=== PATIENT | female | born 1945 | race Caucasian/White ===

== ENCOUNTER 2017-10-04 16:56 | Emergency (ER) | payer MEDICARE ==
[2017-10-04] MEDS ORDERED: cloNIDine HCl 0.1 MG TAB ONE ×2 (17:44→18:42)
--- NOTE | 2017-10-04 18:34 | ER ---
Nurse's Notes [facility] Name: Malka Samuels Age: 72 yrs Sex: Female : 1945 Arrival Date: 10/04/2017 Time: 16:59 Bed 19 Private MD: Andrew Paredes E Diagnosis: Hypertensive heart disease-Poorly controlled Presentation: 10/04 17:02 Presenting complaint: Patient states: my BP is really high, 207/93; reports pounding hj headache, reports SOB; denies chest pain;. Transition of care: patient was not received from another setting of care. Onset of symptoms was October 04, 2017. Initial Sepsis Screen: Does the patient meet any 2 criteria? No. Patient's initial sepsis screen is negative. Does the patient have a suspected source of infection? No. Patient's initial sepsis screen is negative. Care prior to arrival: None. 17:02 Method Of Arrival: Ambulatory 17:02 Acuity: NAYELY 3 hj Triage Assessment: 17:05 General: Appears in no apparent distress. uncomfortable, Behavior is calm, cooperative, hj appropriate for age. Pain: Complains of pain in head. Historical: - Allergies: 17:04 PENICILLINS; hj - Home Meds: 17:04 Simvastatin Oral [Active]; Aspirin Oral [Active]; lisinopril-hydrochlorothiazide hj 10-12.5 mg oral tab 1 tab once daily [Active]; - PMHx: 17:04 Hypertension; Hyperlipidemia; hj - PSHx: 17:04 Hysterectomy; hj - Immunization history:: Adult Immunizations up to date. - Social history:: Smoking status: Patient/guardian denies using tobacco. Screenin:59 Abuse screen: Denies threats or abuse. Nutritional screening: No deficits noted. em Tuberculosis screening: No symptoms or risk factors identified. Fall Risk None identified. Assessment: 17:14 General: Appears in no apparent distress. uncomfortable, Behavior is calm, cooperative, em Reports having high blood pressure that started Saturday evening and tried to make a appointment with her but was unable to get one. Pain: Denies pain. Neuro: Level of Consciousness is awake, alert, obeys commands, Oriented to person, place, time, situation, Denies weakness dizziness, headache. Cardiovascular: Capillary refill < 3 seconds Patient's skin is warm and dry. Respiratory: Reports shortness of breath at rest cough that is non-productive, Airway is patent Respiratory effort is even, unlabored, Respiratory pattern is regular, symmetrical, Breath sounds are clear bilaterally. GI: Abdomen is flat, Patient currently denies nausea, vomiting. : Urine is clear. EENT: No signs and/or symptoms were reported regarding the EENT system. Derm: Skin is intact, Skin is pink, warm \T\ dry. Musculoskeletal: Range of motion: intact in all extremities. 18:45 Reassessment: Patient appears in no apparent distress at this time. pt medicated with em second clonidine 0.1 mg, will be discharged afterwards. 19:19 Reassessment: Patient appears in no apparent distress at this time. Patient and/or jd3 family updated on plan of care and expected duration. Pain level reassessed. Patient is alert, oriented x 3, equal unlabored respirations, skin warm/dry/pink. pt reporting understanding of discharge instructions, even and steady gait upon discharge Patient denies pain at this time. Vital Signs: 17:05 BP 200 / 79; Pulse 106; Resp 18; Temp 99.5(O); Pulse Ox 94% on R/A; Weight 44.72 kg; Height 5 ft. 1 in. (154.94 cm); 17:38 BP 182 / 69; Pulse 96; Resp 20; Pulse Ox 92% on R/A; Pain 0/10; em 18:38 BP 171 / 63; Pulse 94; Resp 18; Pulse Ox 94% on R/A; Pain 0/10; em 17:05 Body Mass Index 18.63 (44.72 kg, 154.94 cm) ED Course: 16:59 Patient arrived in ED. mr 16:59 Andrew Paredes MD is Private Physician. mr 17:03 Triage completed. hj 17:06 Arm band placed on left wrist. hj 17:10 Blaise Chow LVN is Primary Nurse. em 17:16 Olvin Lake MD is Attending Physician. kdr 17:59 No provider procedures requiring assistance completed. em 18:00 Patient has correct armband on for positive identification. Placed in gown. Bed in low em position. Call light in reach. Side rails up X2. 18:33 Andrew Paredes MD is Referral Physician. kdr 19:18 Primary Nurse role handed off by Blaise Chow LVN rg2 19:19 Nathaniel Grider, RN is Primary Nurse. jd3 19:20 Patient did not have IV access during this emergency room visit. jd3 Administered Medications: 17:49 Drug: cloNIDine 0.1 mg Route: PO; em 18:44 Follow up: Response: No adverse reaction em 18:44 Drug: cloNIDine 0.1 mg Route: PO; em 19:21 Follow up: Response: No adverse reaction jd3 Outcome: 18:33 Discharge ordered by . kdr 19:20 Discharged to home ambulatory, with family. jd3 19:20 Condition: stable 19:20 Discharge instructions given to patient, family, Instructed on discharge instructions, follow up and referral plans. medication usage, Demonstrated understanding of instructions, follow-up care, medications, Prescriptions given X 1. 19:21 Patient left the ED. jd3 Signatures: Rhonda Carter rg2 Olvin Lake MD MD kdr Rivera, Maria ChowBlaise, KHANH EVP CHIEF EXPLORATION OFFICER em Rusty Driscoll RN RN Nathaniel Grider RN RN jd3
--- NOTE | 2017-10-04 18:34 | EDPHYS ---
Physician Documentation [facility] Name: Malka Samuels Age: 72 yrs Sex: Female : 1945 Arrival Date: 10/04/2017 Time: 16:59 Bed 19 Private MD: Andrew Paredes E ED Physician Olvin Lake HPI: 10/04 18:35 This 72 yrs old Female presents to ER via Ambulatory with complaints of High kdr Blood Pressure. 18:35 The patient has elevated blood pressure and discovered this at home, with a home kdr device. Onset: The symptoms/episode began/occurred gradually, 3 day(s) ago. Modifying factors: The symptoms are aggravated by Nothing, The symptoms are alleviated by Nothing. Associated signs and symptoms: Pertinent positives: headache, Very mild, Pertinent negatives: chest pain, dizziness, dyspnea, lightheadedness, nausea, visual changes, vomiting, weakness. Severity of symptoms: At its worst the blood pressure was moderate, just prior to arrival, in the emergency department the blood pressure is unchanged. The patient has not experienced similar symptoms in the past. The patient has not recently seen a physician. Historical: - Allergies: 17:04 PENICILLINS; hj - Home Meds: 17:04 Simvastatin Oral [Active]; Aspirin Oral [Active]; lisinopril-hydrochlorothiazide hj 10-12.5 mg oral tab 1 tab once daily [Active]; - PMHx: 17:04 Hypertension; Hyperlipidemia; hj - PSHx: 17:04 Hysterectomy; hj - Immunization history:: Adult Immunizations up to date. - Social history:: Smoking status: Patient/guardian denies using tobacco. ROS: 18:35 Constitutional: Negative for fever, chills, and weight loss, Eyes: Negative for injury, kdr pain, redness, and discharge, ENT: Negative for injury, pain, and discharge, Neck: Negative for injury, pain, and swelling, Cardiovascular: Negative for chest pain, palpitations, and edema, Respiratory: Negative for shortness of breath, cough, wheezing, and pleuritic chest pain, Abdomen/GI: Negative for abdominal pain, nausea, vomiting, diarrhea, and constipation, Back: Negative for injury and pain, : Negative for injury, bleeding, discharge, and swelling, MS/Extremity: Negative for injury and deformity, Skin: Negative for injury, rash, and discoloration, Psych: Negative for depression, anxiety, suicide ideation, homicidal ideation, and hallucinations, Allergy/Immunology: Negative for hives, rash, and allergies, Endocrine: Negative for neck swelling, polydipsia, polyuria, polyphagia, and marked weight changes, Hematologic/Lymphatic: Negative for swollen nodes, abnormal bleeding, and unusual bruising. 18:35 Neuro: Positive for headache, Very mild bi-temporal throbbing, Negative for altered mental status, dizziness, gait disturbance, hearing loss, loss of consciousness, numbness, seizure activity, speech changes, syncope, near syncope, tingling, tinnitus, tremor, visual changes, weakness. Exam: 18:35 Constitutional: This is a well developed, well nourished patient who is awake, alert, kdr and in no acute distress. Head/Face: Normocephalic, atraumatic. Eyes: Pupils equal round and reactive to light, extra-ocular motions intact. Lids and lashes normal. Conjunctiva and sclera are non-icteric and not injected. Cornea within normal limits. Periorbital areas with no swelling, redness, or edema. ENT: Nares patent. No nasal discharge, no septal abnormalities noted. Tympanic membranes are normal and external auditory canals are clear. Oropharynx with no redness, swelling, or masses, exudates, or evidence of obstruction, uvula midline. Mucous membranes moist. Neck: Trachea midline, no thyromegaly or masses palpated, and no cervical lymphadenopathy. Supple, full range of motion without nuchal rigidity, or vertebral point tenderness. No Meningismus. Chest/axilla: Normal chest wall appearance and motion. Nontender with no deformity. No lesions are appreciated. Cardiovascular: Regular rate and rhythm with a normal S1 and S2. No gallops, murmurs, or rubs. Normal PMI, no JVD. No pulse deficits. Respiratory: Lungs have equal breath sounds bilaterally, clear to auscultation and percussion. No rales, rhonchi or wheezes noted. No increased work of breathing, no retractions or nasal flaring. Abdomen/GI: Soft, non-tender, with normal bowel sounds. No distension or tympany. No guarding or rebound. No evidence of tenderness throughout. Back: No spinal tenderness. No costovertebral tenderness. Full range of motion. Skin: Warm, dry with normal turgor. Normal color with no rashes, no lesions, and no evidence of cellulitis. MS/ Extremity: Pulses equal, no cyanosis. Neurovascular intact. Full, normal range of motion. Neuro: Awake and alert, GCS 15, oriented to person, place, time, and situation. Cranial nerves II-XII grossly intact. Motor strength 5/5 in all extremities. Sensory grossly intact. Cerebellar exam normal. Normal gait. Psych: Awake, alert, with orientation to person, place and time. Behavior, mood, and affect are within normal limits. Vital Signs: 17:05 BP 200 / 79; Pulse 106; Resp 18; Temp 99.5(O); Pulse Ox 94% on R/A; Weight 44.72 kg; hj Height 5 ft. 1 in. (154.94 cm); 17:38 BP 182 / 69; Pulse 96; Resp 20; Pulse Ox 92% on R/A; Pain 0/10; em 18:38 BP 171 / 63; Pulse 94; Resp 18; Pulse Ox 94% on R/A; Pain 0/10; em 17:05 Body Mass Index 18.63 (44.72 kg, 154.94 cm) MDM: 18:33 Patient medically screened. kdr 18:35 Data reviewed: vital signs, nurses notes. Counseling: I had a detailed discussion with kdr the patient and/or guardian regarding: the historical points, exam findings, and any diagnostic results supporting the discharge/admit diagnosis, the presence of at least one elevated blood pressure reading (>120/80) during this emergency department visit. Administered Medications: 17:49 Drug: cloNIDine 0.1 mg Route: PO; em 18:44 Follow up: Response: No adverse reaction em 18:44 Drug: cloNIDine 0.1 mg Route: PO; em 19:21 Follow up: Response: No adverse reaction jd3 Disposition: 10/04/17 18:33 Discharged to Home. Impression: Hypertensive heart disease - Poorly controlled. - Condition is Stable. - Discharge Instructions: Hypertension, [id number]. - Prescriptions for Clonidine 0.1 mg Oral Tablet - take 1 tablet by ORAL route every 12 hours; 14 tablet. - Medication Reconciliation Form, Thank You Letter form. - Follow up: Andrew Paredes MD; When: 1 - 2 days; Reason: If symptoms return, Further diagnostic work-up, Recheck today's complaints, Continuance of care, Re-evaluation by your physician. - Problem is new. - Symptoms have improved. Signatures: Olvin Lake MD MD kdr Munoz, Edgar, KHANH PROGRAM MGR Rusty Hurt RN RN hj Nathaniel Grider RN RN jd3
== END 2017-10-04 19:21 | disposition home or self-care (01) ==
LOC: ER 16:56
DX: I11.9 Hypertensive heart disease without heart failure (principal); E78.5 Hyperlipidemia, unspecified; Z88.0 Allergy status to penicillin
CPT/HCPCS: 99283

== ENCOUNTER 2020-07-08 20:03 | Emergency (ER) | payer MEDICARE ==
--- OUTSIDE RECORDS SUMMARY | 2020-07-08 20:05 | XMS REPORT | Continuity of Care Document ---
:1945 Author Organization [facility] t Address [address] [place] [address] [address] [place] [address] Care Team Providers Name Role Phone Moustapha ERIC Attending Clinician Problems This patient has no known problems. Allergies, Adverse Reactions, Alerts This patient has no known allergies or adverse reactions. Medications This patient has no known medications. Procedures This patient has no known procedures. Encounters Start End Encounter Admission Attending Care Care Encounter Source Date/Time Date/Time Type Type Clinicians Facility Department ID 2019-08-05 2019-08-05 Office ABILIO Gerard [id number] 13:12:28 13:57:01 Visit Jesse VELOZ [id number] [facility] [id number] CENTER AT [id number] BRYN [address] [place] [address] Results This patient has no known results.
[2020-07-08] MEDS ORDERED: AMLODIPINE 10 MG TAB ONE (20:58)
[2020-07-08 21:16] LABS: Basophils % 0.6 % (0-1.3); Hematocrit 38.5 % (36.0-45.0); RBC Red Blood Cell Count 4.33 M/uL (3.86-4.86)
[2020-07-08 21:19] LABS: Protime INR 1.23
--- NOTE | 2020-07-08 21:24 | RAD REPORT ---
EXAM DESCRIPTION: RAD - Chest Single View - 07/08/2020 9:06 pm CLINICAL HISTORY: COUGH Chest pain. COMPARISON: No comparisons FINDINGS: Portable technique limits examination quality. The lungs are emphysematous but grossly clear. The heart is normal in size. No displaced fractures. IMPRESSION: No acute intrathoracic process suspected.
[2020-07-08 21:36] LABS: ALT/SGPT 25 U/L (12-78); AST/SGOT 18 U/L (15-37); Albumin 4.1 g/dL (3.4-5.0); Alkaline Phosphatase 91 U/L (45-117); BUN Blood Urea Nitrogen 7 mg/dL (7-18); Bicarbonate 32 mmol/L (21-32); Bilirubin Direct 0.2 mg/dL (0-0.2); Bilirubin Total 0.8 mg/dL (0.2-1.0); Glucose Level 118 mg/dL (74-106); Magnesium 1.9 mg/dL (1.8-2.4); NT PRO-BNP 190 pg/mL (<125); Protein, Total 7.6 g/dL (6.4-8.2); Sodium Level 135 mmol/L (136-145); Troponin (Emerg Dept Use Only) < 0.02 ng/mL (0.0-0.045)
--- NOTE | 2020-07-08 22:27 | EDPHYS ---
Physician Documentation [facility] Name: Malka Samuels Age: 74 yrs Sex: Female : 1945 Arrival Date: 07/08/2020 Time: 20:05 Bed 3 Private MD: Rakesh Christy HPI: 07/08 21:00 This 74 yrs old Female presents to ER via Ambulatory with complaints of High jennifer Blood Pressure. 21:00 The patient has elevated blood pressure and discovered this at a drugstore, at home. jennifer Onset: The symptoms/episode began/occurred 5 day(s) ago. Modifying factors: The symptoms are aggravated by activity, The symptoms are alleviated by remaining still. Associated signs and symptoms: The patient has no apparent associated signs or symptoms. The patient has not experienced similar symptoms in the past. Historical: - Allergies: 20:32 PENICILLINS; ll1 - PMHx: 20:32 Hyperlipidemia; Hypertension; ll1 - PSHx: 20:32 Hysterectomy; ll1 - Immunization history:: Flu vaccine is up to date. - Social history:: Smoking status: Patient denies any tobacco usage or history of. ROS: 21:01 Constitutional: Negative for fever, chills, and weight loss, Eyes: Negative for injury, jennifer pain, redness, and discharge, ENT: Negative for injury, pain, and discharge, Neck: Negative for injury, pain, and swelling, Cardiovascular: Negative for chest pain, palpitations, and edema, Respiratory: Negative for shortness of breath, cough, wheezing, and pleuritic chest pain, Abdomen/GI: Negative for abdominal pain, nausea, vomiting, diarrhea, and constipation, Back: Negative for injury and pain, : Negative for injury, bleeding, discharge, and swelling, MS/Extremity: Negative for injury and deformity, Skin: Negative for injury, rash, and discoloration, Psych: Negative for depression, anxiety, suicide ideation, homicidal ideation, and hallucinations, Allergy/Immunology: Negative for hives, rash, and allergies, Endocrine: Negative for neck swelling, polydipsia, polyuria, polyphagia, and marked weight changes, Hematologic/Lymphatic: Negative for swollen nodes, abnormal bleeding, and unusual bruising. 21:01 Neuro: Positive for dizziness. Exam: 21:01 Constitutional: This is a well developed, well nourished patient who is awake, alert, jennifer and in no acute distress. Head/Face: Normocephalic, atraumatic. Eyes: Pupils equal round and reactive to light, extra-ocular motions intact. Lids and lashes normal. Conjunctiva and sclera are non-icteric and not injected. Cornea within normal limits. Periorbital areas with no swelling, redness, or edema. ENT: Nares patent. No nasal discharge, no septal abnormalities noted. Tympanic membranes are normal and external auditory canals are clear. Oropharynx with no redness, swelling, or masses, exudates, or evidence of obstruction, uvula midline. Mucous membranes moist. Neck: Trachea midline, no thyromegaly or masses palpated, and no cervical lymphadenopathy. Supple, full range of motion without nuchal rigidity, or vertebral point tenderness. No Meningismus. Chest/axilla: Normal chest wall appearance and motion. Nontender with no deformity. No lesions are appreciated. Cardiovascular: Regular rate and rhythm with a normal S1 and S2. No gallops, murmurs, or rubs. Normal PMI, no JVD. No pulse deficits. Respiratory: Lungs have equal breath sounds bilaterally, clear to auscultation and percussion. No rales, rhonchi or wheezes noted. No increased work of breathing, no retractions or nasal flaring. Abdomen/GI: Soft, non-tender, with normal bowel sounds. No distension or tympany. No guarding or rebound. No evidence of tenderness throughout. Back: No spinal tenderness. No costovertebral tenderness. Full range of motion. Skin: Warm, dry with normal turgor. Normal color with no rashes, no lesions, and no evidence of cellulitis. MS/ Extremity: Pulses equal, no cyanosis. Neurovascular intact. Full, normal range of motion. Neuro: Awake and alert, GCS 15, oriented to person, place, time, and situation. Cranial nerves II-XII grossly intact. Motor strength 5/5 in all extremities. Sensory grossly intact. Cerebellar exam normal. Normal gait. Psych: Awake, alert, with orientation to person, place and time. Behavior, mood, and affect are within normal limits. 21:01 Musculoskeletal/extremity: DVT Exam: No signs of deep vein thrombosis. no pain, no swelling, no tenderness, negative Homans' sign noted on exam, no appreciated bluish discoloration, no erythema, no increased warmth. 21:04 ECG was reviewed by the Attending Physician. [facility] Vital Signs: 20:30 BP 223 / 74; Pulse 84; Resp 18; Temp 98.1; Pulse Ox 93% on R/A; Weight 40.37 kg; Height ll1 5 ft. 0 in. (152.40 cm); Pain 0/10; 22:18 BP 180 / 79; Pulse 81; Resp 20; Pulse Ox 95% ; ea 23:00 BP 180 / 73; Pulse 80; Resp 18; Pulse Ox 97% ; ea 20:30 Body Mass Index 17.38 (40.37 kg, 152.40 cm) ll1 MDM: 20:33 Patient medically screened. jennifer 21:02 Differential diagnosis: hypertensive crisis, Malignant HTN, CVA. Differential Diagnosis jennifer altered mental status, sepsis. Data reviewed: vital signs, nurses notes, lab test result(s), EKG, radiologic studies, plain films. Data interpreted: conveyor monitor: rate is 84 beats/min, rhythm is regular. Test interpretation: by ED physician or midlevel provider: ECG, plain radiologic studies. Counseling: I had a detailed discussion with the patient and/or guardian regarding: the historical points, exam findings, and any diagnostic results supporting the discharge/admit diagnosis, lab results, radiology results. 07/08 20:34 Order name: Basic Metabolic Panel [facility] 07/08 20:34 Order name: CBC with Diff; Complete Time: 21:[address] [facility] 07/08 20:34 Order name: LFT's; Complete Time: 21:[address] [facility] 07/08 20:34 Order name: Magnesium; Complete Time: 21:[address] [facility] 07/08 20:34 Order name: NT PRO-BNP; Complete Time: 21:[address] [facility] 07/08 20:34 Order name: PT-INR; Complete Time: 21:[address] [facility] 07/08 20:34 Order name: Troponin (emerg Dept Use Only); Complete Time: 21:[address] [facility] 07/08 20:34 Order name: XRAY Chest (1 view) [facility] 07/08 20:34 Order name: EKG; Complete Time: 20:[address] [facility] 07/08 20:34 Order name: Cardiac monitoring; Complete Time: 20:[address] [facility] 07/08 20:35 Order name: Basic Metabolic Panel; Complete Time: 21:54 [facility] 07/08 21:26 Order name: RAD; Complete Time: 21:28 [facility] 07/08 20:34 Order name: EKG - Nurse/Tech; Complete Time: 22:[address] [facility] 07/08 20:34 Order name: IV Saline Lock; Complete Time: 22:[address] [facility] 07/08 20:34 Order name: Labs collected and sent; Complete Time: 21:[address] [facility] 07/08 20:34 Order name: O2 Per Protocol; Complete Time: 22:[address] [facility] 07/08 20:34 Order name: O2 Sat Monitoring; Complete Time: 22:[address] [facility] 07/08 20:34 Order name: Urine Dipstick-Ancillary (obtain specimen) [facility] 07/08 21:55 Order name: Misc. Order: po juice; Complete Time: 22:[address] [facility] 07/08 21:58 Order name: Vital Signs; Complete Time: 22:[address] [facility] EC:04 Rate is 74 beats/min. Rhythm is regular. QRS Mcfarland is Normal. MD interval is normal. QRS jennifer interval is normal. QT interval is normal. No Q waves. T waves are Normal. No ST changes noted. Clinical impression: Normal ECG and No evidence of ischemia. Interpreted by me. Reviewed by me. Administered Medications: 21:10 Drug: Norvasc 10 mg Route: PO; ea 22:33 Follow up: Response: No adverse reaction; Blood pressure is lowered ea 22:45 Drug: Potassium Effervescent Tablet 50 mEq Route: PO; ea 23:09 Follow up: Response: No adverse reaction ea Disposition: 07/08/20 22:27 Discharged to Home. Impression: Essential (primary) hypertension, Hypokalemia. - Condition is Stable. - Discharge Instructions: Potassium Content of Foods, Hypertension, Hypertension, [id number], Hypokalemia. - Prescriptions for Norvasc 5 mg Oral Tablet - take 1 tablet by ORAL route once daily; 20 tablet. Lisinopril- Hydrochlorothiazide 20-12.5 mg Oral Tablet - take 1 tablet by ORAL route once daily; 20 tablet. Potassium Chloride 20 meq Oral Packet - take 1 packet by ORAL route once daily 1 packet in 6 (six) ounces of water or juice; Take after meal; 30 packet. - Medication Reconciliation Form, Thank You Letter, Antibiotic Education, Prescription Opioid Use form. - Follow up: Private Physician; When: 2 - 3 days; Reason: Recheck today's complaints, Continuance of care, Re-evaluation by your physician. Follow up: Freedom Carson; When: 2 - 3 days; Reason: Recheck today's complaints, Continuance of care, Re-evaluation by your physician. - Problem is new. - Symptoms have improved. Signatures: Dispatcher [employer] EDMS Rakesh Cartagena MD MD cha Antunez, Elena, RN RN ea Lewis, Lynsay, RN RN ll1 Corrections: (The following items were deleted from the chart) 23:08 22:27 07/08/2020 22:27 Discharged to Home. Impression: Essential (primary) ea hypertension; Hypokalemia. Condition is Stable. Discharge Instructions: Hypertension, Hypertension, [id number], Potassium Content of Foods, Hypokalemia. Prescriptions for Norvasc 5 mg Oral Tablet - take 1 tablet by ORAL route once daily; 20 tablet, Lisinopril-Hydrochlorothiazide 20-12.5 mg Oral Tablet - take 1 tablet by ORAL route once daily; 20 tablet, Potassium Chloride 20 meq Oral Packet - take 1 packet by ORAL route once daily 1 packet in 6 (six) ounces of water or juice; Take after meal; 30 packet. and Forms are Medication Reconciliation Form, Thank You Letter, Antibiotic Education, Prescription Opioid Use. Follow up: Private Physician; When: 2 - 3 days; Reason: Recheck today's complaints, Continuance of care, Re-evaluation by your physician. Follow up: Freedom Carson; When: 2 - 3 days; Reason: Recheck today's complaints, Continuance of care, Re-evaluation by your physician. Problem is new. Symptoms have improved. jennifer
--- NOTE | 2020-07-08 22:27 | ER ---
Nurse's Notes [facility] Name: Malka Samuels Age: 74 yrs Sex: Female : 1945 Arrival Date: 07/08/2020 Time: 20:05 Bed 3 Private MD: Diagnosis: Essential (primary) hypertension;Hypokalemia Presentation: 07/08 20:30 Chief complaint: Patient states: BP has been elevated since Saturday. BP 213/88 today ll1 at home. Coronavirus screen: Client denies travel out of the [place] in the last 14 days. At this time, the client does not indicate any symptoms associated with coronavirus-19. Ebola Screen: Patient denies travel to an Ebola-affected area in the 21 days before illness onset. Initial Sepsis Screen: Does the patient meet any 2 criteria? No. Patient's initial sepsis screen is negative. Does the patient have a suspected source of infection? No. Patient's initial sepsis screen is negative. Risk Assessment: Do you want to hurt yourself or someone else? Patient reports no desire to harm self or others. Onset of symptoms was July 06, 2020. 20:30 Method Of Arrival: Ambulatory ll1 20:30 Acuity: NAYELY 2 ll1 Historical: - Allergies: 20:32 PENICILLINS; ll1 - PMHx: 20:32 Hyperlipidemia; Hypertension; ll1 - PSHx: 20:32 Hysterectomy; ll1 - Immunization history:: Flu vaccine is up to date. - Social history:: Smoking status: Patient denies any tobacco usage or history of. Screenin:38 Abuse screen: Denies threats or abuse. Nutritional screening: No deficits noted. ea Tuberculosis screening: No symptoms or risk factors identified. Fall Risk None identified. Assessment: 21:11 General: Appears in no apparent distress. Behavior is calm. Pain: Denies pain. Neuro: ea Level of Consciousness is awake, alert, obeys commands, Oriented to person, place, time. Cardiovascular: Patient's skin is warm and dry. Respiratory: Airway is patent Respiratory effort is even, unlabored, Respiratory pattern is regular, symmetrical. Derm: Skin is pink, warm \T\ dry. 23:07 Reassessment: Patient and/or family updated on plan of care and expected duration. Pain ea level reassessed. Patient is alert, oriented x 3, equal unlabored respirations, skin warm/dry/pink. Discharge instruction given to patient, verbalized the understanding of instruction. Pt left ED ambulatory tolerating well. Vital Signs: 20:30 BP 223 / 74; Pulse 84; Resp 18; Temp 98.1; Pulse Ox 93% on R/A; Weight 40.37 kg; Height ll1 5 ft. 0 in. (152.40 cm); Pain 0/10; 22:18 BP 180 / 79; Pulse 81; Resp 20; Pulse Ox 95% ; ea 23:00 BP 180 / 73; Pulse 80; Resp 18; Pulse Ox 97% ; ea 20:30 Body Mass Index 17.38 (40.37 kg, 152.40 cm) ll1 ED Course: 20:05 Patient arrived in ED. cf2 20:32 Triage completed. ll1 20:33 Rakehs Cartagena MD is Attending Physician. [facility] 20:33 Arm band placed on. ll1 20:38 Juli Yeung, FREDI is Primary Nurse. ea 20:38 Patient has correct armband on for positive identification. Placed in gown. Bed in low ea position. Call light in reach. 21:11 Inserted saline lock: 20 gauge in right antecubital area, using aseptic technique. ea Blood collected. 22:27 Freedom Carson MD is Referral Physician. [facility] 23:07 No provider procedures requiring assistance completed. IV discontinued, intact, ea bleeding controlled, No redness/swelling at site. Pressure dressing applied. Administered Medications: 21:10 Drug: Norvasc 10 mg Route: PO; ea 22:33 Follow up: Response: No adverse reaction; Blood pressure is lowered ea 22:45 Drug: Potassium Effervescent Tablet 50 mEq Route: PO; ea 23:09 Follow up: Response: No adverse reaction ea Outcome: 22:27 Discharge ordered by . jennifer 23:08 Discharged to home ambulatory. ea 23:08 Condition: stable 23:08 Discharge instructions given to patient, Instructed on discharge instructions, follow up and referral plans. medication usage, Demonstrated understanding of instructions, follow-up care, medications, Prescriptions given X 3. 23:08 Patient left the ED. ea Signatures: Rakesh Cartagena MD MD cha Antunez, Elena, RN RN ea Frazier, Celesta 2 Rush, Lynsay, RN RN ll1
[2020-07-08] MEDS ORDERED: POTASSIUM 25 MEQ EFFERV TAB ONE (22:49)
[2020-07-09 00:52] VITALS: TEMP 98.1
[2020-07-09 00:53] VITALS: BP 180/79; O2SAT 95
== END 2020-07-08 23:08 | disposition home or self-care (01) ==
LOC: ER 20:03
DX: I10 Essential (primary) hypertension (principal); E87.6 Hypokalemia; Z88.0 Allergy status to penicillin
CPT/HCPCS: 36415; 71045; 80048; 80076; 83735; 83880; 84484; 85025; 85610; 93005; 99284

== ENCOUNTER 2024-03-17 21:25 | Emergency (ER) | payer OTHER ==
--- OUTSIDE RECORDS SUMMARY | 2024-03-17 21:28 | XMS REPORT | Continuity of Care Document ---
Author Name Unknown Address [address] [place] [address] [facility] thconnect Address [address] [place] [address] Care Team Providers Care Health Care Attorney Name Role Phone AURORA LOPEZ Primary Care Physician ÁNGEL Gan Attending Clinician Alek dow RADIOLOGY Attending Clinician Unavailable Radiology Attending Clinician Unavailable [email or web address] Attending Clinician Ángel Gan MD Attending Clinician [phone] Only, Adc Test Attending Clinician Unavailable Doctor Unassigned, [place] Attending Clinician U viji Pob, Adc Lab Main Attending Clinician Maverick Dan MD Attending Clinician [phone] MAVERICK LOVETT Attending Clinician Unavailable ÁNGEL OLIVEROS Admitting Clinician JEYSON Olvera Admitting Clinician Unavailable [email or web address] Admitting Clinician Ángel Gan MD Admitting Clinician [phone] Payers Payer Name Policy Type Policy Number Effective Date Expirati on Date Source [facility] [id number] 2019 00:00:00 Problems Condition Name Condition Details Condition Category Status Onset Date Resolution Date Last Treatment Date Treating Clinician Comments Source Encounter for routine gynecologi maria esther examinatio n Encounter for routine gynecologi maria esther examinatio n Disease Active 09-02 00:00: 00 Overview: Formattin g of this note might be different from the original. ICD10 Diagnosis Term Optimization Engineer Utility [facility] Allergies, Adverse Reactions, Alerts Allergy Name Allergy Type Status Severity Reaction(s) Onset Date Inactive Date Treating Clinician Comments Source PENICILL INS Drug Class Active High Rash 2 00:00: 00 [facility] Penicill ins Propensi ty to adverse reaction s Active Rash 08-05 00:00: 00 [facility] Penicill ins Propensi ty to adverse reaction s Active Rash 08-05 00:00: 00 [facility] NO KNOWN ALLERGIE S Drug Class Active [facility] Social History Social Habit Start Date Stop Date Quantity Comments Source History of tobacco use Cigarette Smoker [facility] Sexual orientation [facility] Exposure to SARS-CoV-2 (event) Not sure [facility] Alcoholic beverage intake 2020-09-29 00:00:00 2020-09-29 00:00:00 Current drinker of alcohol (finding) [facility] Alcohol intake 2020-09-28 00:00:00 2020-09-28 00:00:00 Current drinker of alcohol (finding) [facility] Alcohol Comment 2020-09-28 00:00:00 2020-09-28 00:00:00 monthly [facility] History of Social function 2020-09-28 00:00:00 2020-09-28 00:00:00 [facility] Tobacco use and exposure 2020-09-28 00:00:00 2020-09-28 00:00:00 Smokeless tobacco non-user [facility] Sex assigned at 1945 00:00:00 1945 00:00:00 [facility] Smoking Status Start Date Stop Date Source Ex-smoker 2020-09-28 00:00:00 2020-09-28 00:00:00 [facility] Unknown if ever smoked [facility] Medications Ordered Medication Name Filled Medication Name Start Date Stop Date Current Medication? Ordering Clinician Indication Dosage Frequency Signature (SIG) Comments Components Source ASPIRIN 81 MG ORAL TAB 09-28 16:54: 21 Yes None Entered [facility] neomycin-po lymyxin-dex amethasone (MAXITROL) 3.5 mg/g-10,000 unit/g-0.1 % ophthalmic ointment 09-28 16:16: 00 Yes PRN, Starting Sat09/28/20 at 1116, Until Discontinu ed, Routine, Intra-op [facility] EPINEPHrine 1:1,000 (1 mg/mL) (ADRENALIN) injection 09-28 16:15: 00 Yes PRN, Starting Sat09/28/20 at 1115, Until Discontinu ed, Routine, Intra-op [facility] DUOVISC (DUOVISC VISCO ELASTIC) 3 %-4 %(0.5 mL) 1 % (0.55 mL) intraocular injection 09-28 16:15: 00 Yes PRN, Starting Sat09/28/20 at 1115, Until Discontinu ed, Routine, Intra-op [facility] dexamethaso ne (DECADRON PHOSPHATE) injection 09-28 16:14: 00 Yes PRN, Starting Sat09/28/20 at 1114, Until Discontinu ed, Routine, Intra-op [facility] carbachoL (MIOSTAT) 0.01 % intraocular injection 09-28 16:14: 00 Yes PRN, Starting Sat09/28/20 at 1114, Until Discontinu ed, Routine, Intra-op [facility] balanced salt irrig soln comb1 (BSS PLUS) ophthalmic solution 500 mL bag 09-28 16:09: 00 Yes PRN, Starting Sat09/28/20 at 1109, Until Discontinu ed, Routine, Intra-op [facility] water for irrigation irrigation solution 09-28 16:05: 00 Yes PRN, Starting Sat09/28/20 at 1105, Until Discontinu ed, Routine, Intra-op [facility] eye block syringe 11 mL 09-28 16:00: 00 Yes PRN, Starting Sat09/28/20 at 1100, Until Discontinu ed, Intra-op [facility] Hyaluronida se, Human Recomb. (HYLENEX) injection 09-28 16:00: 00 Yes PRN, Starting Sat09/28/20 at 1100, Until Discontinu ed, Routine, Intra-op [facility] mydriatic #5 ophthalmic solution 0.5 mL syringe 09-28 14:00: 00 09-28 14:10 :00 No .5mL 0.5 mL, Left Eye, ONCE, 1 dose, Sat09/28/20 at 0900, Routine, DSU Pre-op [facility] lactated ringers IV infusion 1,000 mL 09-28 14:00: 00 09-28 14:10 :00 No 1000mL at 42 mL/hr, 1,000 mL, IV Infusion, ONCE, 1 dose, Sat09/28/20 at 0900, Routine, DSU Pre-op [facility] ASPIRIN 81 MG ORAL TAB 09-28 11:54: 21 Yes None Entered [facility] ASPIRIN 81 MG ORAL TAB 09-07 17:57: 47 Yes None Entered [facility] NORVASC ORAL 09-07 17:35: 31 09-07 00:00 :00 No None Entered [facility] water for irrigation irrigation solution 09-07 17:19: 00 09-07 19:57 :50 No PRN, Starting Sat09/07/20 at 1219, Until Sat09/07/20 at 1457, Routine, Intra-op [facility] neomycin-po lymyxin-dex amethasone (MAXITROL) 3.5 mg/g-10,000 unit/g-0.1 % ophthalmic ointment 09-07 17:19: 00 09-07 19:57 :50 No PRN, Starting Sat09/07/20 at 1219, Until Sat09/07/20 at 1457, Routine, Intra-op [facility] Hyaluronida se, Human Recomb. (HYLENEX) injection 09-07 17:18: 00 09-07 19:57 :50 No PRN, Starting Sat09/07/20 at 1218, Until Sat09/07/20 at 1457, Routine, Intra-op [facility] eye block syringe 11 mL 09-07 17:18: 00 09-07 19:57 :50 No PRN, Starting Sat09/07/20 at 1218, Until Sat09/07/20 at 1457, Intra-op [facility] EPINEPHrine 1:1,000 (1 mg/mL) (ADRENALIN) injection 09-07 17:18: 00 09-07 19:57 :50 No PRN, Starting Sat09/07/20 at 1218, Until Sat09/07/20 at 1457, Routine, Intra-op [facility] ceFAZolin (ANCEF) injection 09-07 17:17: 00 Yes PRN, Starting Sat09/07/20 at 1217, Until Discontinu ed, ARIELLA, Intra-op [facility] carbachoL (MIOSTAT) 0.01 % intraocular injection 09-07 17:17: 00 Yes PRN, Starting Sat09/07/20 at 1217, Until Discontinu ed, Routine, Intra-op [facility] balanced salt irrig soln comb1 (BSS PLUS) ophthalmic solution 500 mL bag 09-07 17:17: 00 Yes PRN, Starting Sat09/07/20 at 1217, Until Discontinu ed, Routine, Intra-op [facility] DUOVISC (DUOVISC VISCO ELASTIC) 3 %-4 %(0.5 mL) 1 % (0.55 mL) intraocular injection 09-07 17:17: 00 09-07 19:57 :50 No PRN, Starting Sat09/07/20 at 1217, Until Sat09/07/20 at 1457, Routine, [facility] dexamethaso ne (DECADRON PHOSPHATE) injection 09-07 17:17: 00 09-07 19:57 :50 No PRN, Starting Sat09/07/20 at 1217, Until Sat09/07/20 at 1457, Routine, Intra-op [facility] lactated ringers IV infusion 1,000 mL 09-07 15:45: 00 09-07 15:43 :00 No 1000mL at 42 mL/hr, 1,000 mL, IV Infusion, ONCE, 1 dose, Sat09/07/20 at 1045, Routine, DSU Pre-op [facility] mydriatic #5 ophthalmic solution 0.5 mL syringe 09-07 15:45: 00 09-07 15:43 :00 No .5mL 0.5 mL, Right Eye, ONCE, 1 dose, Sat09/07/20 at 1045, Routine, DSU Pre-op [facility] NORVASC ORAL 09-06 15:03: 32 Yes None Entered [facility] LISINOPRIL- HYDROCHLORO THIAZIDE ORAL 09-06 15:03: 15 09-06 00:00 :00 No None Entered [facility] PROLENSA 0.07 % drops 09-03 00:00: 00 Yes INSTILL 1 DROP INTO RIGHT EYE AT BEDTIME FOR 2 WEEKS [facility] amLODIPine 5 mg tablet 08-19 00:00: 00 Yes TAKE 1 TABLET BY MOUTH ONCE DAILY FOR 30 DAYS [facility] lisinopriL 20 mg tablet 08-08 00:00: 00 Yes TAKE 1 TABLET BY MOUTH ONCE DAILY FOR 30 DAYS [facility] hydrALAZINE 10 mg tablet 2 00:00: 00 09-06 00:00 :00 No [facility] LISINOPRIL- HYDROCHLORO THIAZIDE ORAL 09-03 02:54: 36 Yes None Entered [facility] ASPIRIN 81 MG ORAL TAB 09-03 02:54: 36 Yes None Entered [facility] NORVASC ORAL 09-03 02:54: 35 Yes None Entered [facility] Vital Signs Vital Name Observation Time Observation Value Comments S [facility] Systolic blood pressure 2020-09-28 16:31:00 142 mm[Hg] [facility] Diastolic blood pressure 2020-09-28 16:31:00 62 mm[Hg] [facility] Heart rate 2020-09-28 16:31:00 88 /min [facility] Respiratory rate 2020-09-28 16:31:00 18 /min [facility] Oxygen saturation in Arterial blood by Pulse oximetry 2020-09-28 16:31:00 93 /min [facility] Body temperature 2020-09-28 16:29:00 36.67 Cony [facility] Body height 2020-09-21 15:20:00 152.4 cm [facility] Body weight 2020-09-21 15:20:[address] [facility] BMI 2020-09-21 15:20:00 17.57 kg/m2 [facility] Systolic blood pressure 2020-09-28 14:05:00 169 mm[Hg] [facility] Diastolic blood pressure 2020-09-28 14:05:00 66 mm[Hg] [facility] Heart rate 2020-09-28 14:05:00 79 /min [facility] Body temperature 2020-09-28 14:05:00 36.67 Cony [facility] Respiratory rate 2020-09-28 14:05:00 20 /min [facility] Oxygen saturation in Arterial blood by Pulse oximetry 2020-09-28 14:05:00 99 /min [facility] Body height 2020-09-21 15:20:00 152.4 cm [facility] Body weight 2020-09-21 15:20:00 40.8 kg [facility] BMI 2020-09-21 15:20:00 17.57 kg/m2 [facility] Systolic blood pressure 2020-09-07 17:50:00 173 mm[Hg] [facility] Diastolic blood pressure 2020-09-07 17:50:00 54 mm[Hg] [facility] Heart rate 2020-09-07 17:50:00 76 /min [facility] Respiratory rate 2020-09-07 17:50:00 20 /min [facility] Oxygen saturation in Arterial blood by Pulse oximetry 2020-09-07 17:50:00 98 /min [facility] Body temperature 2020-09-07 15:30:00 36.89 Cony [facility] Body height 2020-09-06 15:00:00 152.4 cm [facility] Body weight 2020-09-06 15:00:00 40.824 kg [facility] BMI 2020-09-06 15:00:00 17.58 kg/m2 [facility] Systolic blood pressure 2020-09-07 17:50:00 173 mm[Hg] [facility] Diastolic blood pressure 2020-09-07 17:50:00 54 mm[Hg] [facility] Heart rate 2020-09-07 17:50:00 76 /min [facility] Respiratory rate 2020-09-07 17:50:00 20 /min [facility] Oxygen saturation in Arterial blood by Pulse oximetry 2020-09-07 17:50:00 98 /min [facility] Body temperature 2020-09-07 15:30:00 36.89 Cony [facility] Body height 2020-09-06 15:00:00 152.4 cm [facility] Body weight 2020-09-06 15:00:00 40.824 kg [facility] BMI 2020-09-06 15:00:00 17.58 kg/m2 [facility] Systolic blood pressure 2019-08-05 19:26:00 131 mm[Hg] [facility] Diastolic blood pressure 2019-08-05 19:26:00 64 mm[Hg] [facility] Heart rate 2019-08-05 19:26:00 83 /min [facility] Body temperature 2019-08-05 19:26:00 35.89 Cony [facility] Body weight 2019-08-05 19:26:[address] [facility] Systolic blood pressure 2019-08-05 19:26:00 131 mm[Hg] [facility] Diastolic blood pressure 2019-08-05 19:26:00 64 mm[Hg] [facility] Heart rate 2019-08-05 19:26:00 83 /min [facility] Body temperature 2019-08-05 19:26:00 35.89 Cony [facility] Body weight 2019-08-05 19:26:00 42.91 kg [facility] Procedures Procedure Date / Time Performed Performing Clinician Source CT LOW DOSE LUNG NODULE 2024-03-09 20:52:26 Jeyson Lorenzo [facility] PHACOEMULSIFICATION OF CATARACT WITH INTRAOCULAR LENS IMPLANT 2020-09-28 15:49:00 Ángel Oliveros [facility] ASSIGNMENT OF BENEFITS 2020-09-27 16:20:30 Doctor Unassigned, [place] [facility] PHACOEMULSIFICATION OF CATARACT WITH INTRAOCULAR LENS IMPLANT 2020-09-07 16:57:00 Ángel Oliveros [facility] DAY SURGERY - ADC 2020-09-07 05:01:00 Doctor Unassigned, [place] [facility] ASSIGNMENT OF BENEFITS 2020-08-31 20:58:40 Doctor Unassigned, [place] [facility] PHYSICIAN ORDERS 2020-08-31 05:01:00 Doctor Unassigned, [place] [facility] PHYSICIAN ORDERS 2020-08-31 05:01:00 Doctor Unassigned, [place] [facility] Encounters Start Date/Time End Date/Time Encounter Type Admission Type Attending [facility] Care Facility Care Department Encounter ID Source 2021-04-09 11:58:14 Outpatient R ÁNGEL OLIVEROS [facility] [id number] [facility] 2021-04-09 06:54:42 Outpatient R ÁNGEL OLIVEROS [facility] [id number] [facility] 2024-03-09 14:25:20 2024-03-09 23:59:00 Outpatient R RADIOLOGY [facility] [id number] [facility] 2024-03-09 14:25:20 2024-03-09 23:59:00 Hospital Encounter Radiology Radiology [facility] [id number] [id number] [facility] 2023-04-05 00:00:00 2023-04-05 00:00:00 Outpatient [email or web address] dipapo_S PRIV [facility] [id number] [facility] 2020-09-28 08:58:00 2020-09-28 11:54:00 Hospital Encounter [facility] Ángel [facility] [id number] [id number] [id number] [facility] 2020-09-28 10:43:00 2020-09-28 11:23:00 Surgery [facility] Ángel [facility] [id number] [id number] [id number] [facility] 2020-09-27 11:17:22 2020-09-27 11:32:22 Laboratory Only Only, Adc Test [place] [facility] [id number] 350.1.13.10 [id number] [id number] [facility] 2020-09-27 11:15:00 2020-09-27 11:15:00 Outpatient R ÁNGEL OLIVEROS [facility] [id number] [facility] 2020-09-27 00:00:00 2020-09-27 00:00:00 Orders Only Doctor Unassigned, [place] [facility] [id number] 350.1.13.10 4.2.7.2.686 [id number] [facility] 2020-09-07 10:27:00 2020-09-07 12:55:00 Hospital Encounter [facility] [id number] 350.1.13.10 4.2.7.2.686 [id number] [facility] 2020-09-07 12:10:00 2020-09-07 12:51:00 Surgery Ángel Oliveros [facility] [id number] 350.1.13.10 4.2.7.2.686 [id number] [facility] 2020-09-07 00:00:00 2020-09-07 00:00:00 Orders Only Doctor Unassigned, [place] [facility] 1..114 350.1.13.10 4.2.7.2.686 [id number] [facility] 2020-09-06 09:54:31 2020-09-06 10:09:31 Laboratory Only Only, Adc Test Ángel Oliveros [facility] 1.114 350.1.13.10 4.2.7.2.686 [id number] [facility] 2020-09-06 09:45:00 2020-09-06 09:45:00 Outpatient R ÁNGEL OLIVEROS [facility] [id number] [facility] 2020-08-31 16:18:00 2020-08-31 16:33:00 Audit Consultant Visit Pob, Adc Lab Main [facility] 1.84.114 350.1.13.10 4.2.7.2.686 [id number] [facility] 2020-08-31 16:30:00 2020-08-31 16:30:00 Outpatient R ÁNGEL OLIVEROS [facility] [id number] [facility] 2020-08-31 15:45:00 2020-08-31 15:45:00 Outpatient R VALENTINO ÁNGEL [facility] [id number] [facility] 2020-08-31 00:00:00 2020-08-31 00:00:00 Orders Only Doctor Unassigned, [place] [facility] 1..114 350.1.13.10 4.2.7.2.686 [id number] [facility] 2019-08-05 13:12:28 2019-08-05 13:57:01 Office Visit Maverick Lovett [facility] [id number] 350.1.13.10 4.2.7.2.686 [id number] 2019-08-05 13:12:28 2019-08-05 13:57:01 Office Visit Maverick Lovett [facility] [id number] 350.1.13.10 4.2.7.2.686 [id number] [facility] 2019-08-05 13:40:00 2019-08-05 13:40:00 Outpatient R MAVERICK LOVETT [facility] [id number] [facility] Results Test Description Test Time Test Comments Results Resul t Comments Source CT LUNG NODULE 2 14:51:15 EXAM: CT LUNG NODULE DATE OF SERVICE: 03/09/2024 03:55 PM ORDERING PHYSICIAN: JEYSON LORENZO REASON FOR EXAM: ?CT Low Dose Lung Cancer Screening TECHNIQUE: ?Computed tomographic examination of the chest was performed without IV contrast. Auto Exposure Controls were utilized during the CT exam to meet ALARA standards for radiation dose reduction. COMPARISON: None FINDINGS: ? LUNGS AND PLEURAL: Severe centrilobular emphysema. Subpleural triangular opacity lateral aspect right middle lobe measuring 8 mm and adjacent ground glass opacity right middle lobe. Motion artifact. Mild nodular uterus is medial aspect of both lower lobes. 3 mm lung nodule left lower lobe. 7 mm subpleural nodule lateral aspect left lower lobe. MEDIASTINUM AND LOWER NECK: Trachea is midline no central way lesions. HEART AND GREAT VESSELS: Heart size is normal multivessel coronary trifurcations LYMPH NODES: There is no pathologic mediastinal or hilar lymphadenopathy VISUALIZED UPPER ABDOMEN: Extensive atherosclerosis down aorta appearing gallbladder is absent. Round calcification interior mid right kidney possibly a no calcium measuring 4mm. Additional calcification 11 hilum are probably vascular appearing OSSEOUS STRUCTURES AND SOFT TISSUES: Diffuse osteopenia. [facility]
--- NOTE | 2024-03-17 22:31 | EDPHYS ---
Physician Documentation [facility] Name: Malka Samuels Age: 78 yrs Sex: Female : 1945 Arrival Date: 03/17/2024 Time: 21:25 Bed IW1 Private MD: ED Physician Moody Bassett HPI: 03/17 22:36 This 78 yrs old Female presents to ER via Unassigned with complaints of High Blood rt Pressure. 22:40 Patient presents to the ED with reported hypertension. Patient had her amlodipine rt change valsartan recently. Patient states that her blood pressure gets about 220 at home, she took 1 dose of clonidine. States that she was not having any symptoms associated with this. Symptoms are mild in severity, no other aggravating alleviating factors.. Historical: - Allergies: 22:44 PENICILLINS; vc1 - PMHx: 22:44 Hyperlipidemia; Hypertension; vc1 - PSHx: 22:44 Total abdominal hysterectomy; vc1 - Immunization history:: Adult Immunizations up to date. - Infectious Disease History:: Denies. - Family history:: not pertinent. - Social history:: Smoking status: Patient denies any tobacco usage or history of. ROS: 22:40 Constitutional: Negative for fever, chills, and weight loss, Cardiovascular: Negative rt for chest pain, palpitations, and edema, Respiratory: Negative for shortness of breath, cough, wheezing, and pleuritic chest pain, Abdomen/GI: Negative for abdominal pain, nausea, vomiting, diarrhea, and constipation, MS/Extremity: Negative for injury and deformity, Skin: Negative for injury, rash, and discoloration, Neuro: Negative for headache, weakness, numbness, tingling, and seizure, Exam: 22:40 Constitutional: This is a well developed, well nourished patient who is awake, alert, rt and in no acute distress. Head/Face: Normocephalic, atraumatic. Chest/axilla: Normal chest wall appearance and motion. Nontender with no deformity. No lesions are appreciated. Cardiovascular: Regular rate and rhythm with a normal S1 and S2. No gallops, murmurs, or rubs. Normal PMI, no JVD. No pulse deficits. Respiratory: Lungs have equal breath sounds bilaterally, clear to auscultation and percussion. No rales, rhonchi or wheezes noted. No increased work of breathing, no retractions or nasal flaring. Abdomen/GI: Soft, non-tender, with normal bowel sounds. No distension or tympany. No guarding or rebound. No evidence of tenderness throughout. Skin: Warm, dry with normal turgor. Normal color with no rashes, no lesions, and no evidence of cellulitis. MS/ Extremity: Pulses equal, no cyanosis. Neurovascular intact. Full, normal range of motion. Neuro: Awake and alert, GCS 15, oriented to person, place, time, and situation. Cranial nerves II-XII grossly intact. Motor strength 5/5 in all extremities. Sensory grossly intact. Cerebellar exam normal. Normal gait. Vital Signs: 22:54 BP 146 / 62; Pulse 76; Resp 16; Temp 98.4; Pulse Ox 93% ; Weight 40.37 kg; Height 5 ft. vc1 0 in. ; Pain 0/10; 22:54 Body Mass Index 17.38 (40.37 kg, 152.40 cm) vc1 22:54 Pain Scale: Adult vc1 MDM: 22:21 Patient medically screened. rt 22:40 Differential diagnosis: Essential hypertension. Data reviewed: vital signs, nurses rt notes. Test considered but Not performed: Other Details Blood pressure significantly proved, no symptoms. Will not obtain workup per asymptomatic hypertension guidelines. Care significantly affected by the following chronic conditions: Hypertension. Counseling: I had a detailed discussion with the patient and/or guardian regarding the historical points, exam findings, and any diagnostic results supporting the discharge/admit diagnosis, the presence of at least one elevated blood pressure reading (>120/80) during this emergency department visit, the need for outpatient follow up, to return to the emergency department if symptoms worsen or persist or if there are any questions or concerns that arise at home. Administered Medications: No medications were administered Disposition Summary: 03/17/24 22:30 Discharge Ordered Notes: Location: Home rt Problem: new rt Symptoms: have improved rt Condition: Stable rt Diagnosis - Essential (primary) hypertension rt Followup: rt - With: Private Physician - When: 2 - 3 days - Reason: Discharge Instructions: - Discharge Summary Sheet rt - Hypertension, Adult rt Forms: - Medication Reconciliation Form rt - Antibiotic Education rt - Prescription Opioid Use rt - Patient Portal Instructions rt - Leadership Thank You Letter rt Signatures: Rhea Beck, FREDI RN vc1 Moody Bassett MD MD rt
--- NOTE | 2024-03-17 22:58 | ER ---
Nurse's Notes [facility] Name: Malka Samuels Age: 78 yrs Sex: Female : 1945 Arrival Date: 03/17/2024 Time: 21:25 Bed IW1 Private MD: Diagnosis: Essential (primary) hypertension Presentation: 03/17 22:41 Chief complaint: Patient states: My blood pressure was 229 over something. They just vc1 changed my medication. I took a clonidine around 2029. 22:41 Method Of Arrival: Ambulatory vc1 22:54 Coronavirus screen: Vaccine status: Patient reports receiving the 2nd dose of the covid vc1 vaccine. Client denies travel out of the [place] in the last 14 days. Client presents with at least one sign or symptom that may indicate coronavirus-19. At this time, the client does not indicate any symptoms associated with coronavirus-19. Ebola Screen: Patient negative for fever greater than or equal to 101.5 degrees Fahrenheit, and additional compatible Ebola Virus Disease symptoms Patient denies exposure to infectious person. Patient denies travel to an Ebola-affected area in the 21 days before illness onset. No symptoms or risks identified at this time. 22:55 Initial Sepsis Screen: Does the patient meet any 2 criteria? No. Patient's initial vc1 sepsis screen is negative. Does the patient have a suspected source of infection? No. Patient's initial sepsis screen is negative. Risk Assessment: Do you want to hurt yourself or someone else? Patient reports no desire to harm self or others. Onset of symptoms was March 17, 2024. 22:55 Acuity: NAYELY 5 vc1 Triage Assessment: 22:56 General: Appears in no apparent distress. comfortable, Behavior is calm, cooperative, vc1 appropriate for age. Pain: Denies pain. EENT: No deficits noted. No signs and/or symptoms were reported regarding the EENT system. Neuro: Level of Consciousness is awake, alert, obeys commands, Oriented to person, place, time, situation, Appropriate for age. Cardiovascular: Heart tones S1 S2 present Capillary refill < 3 seconds Patient's skin is warm and dry. Respiratory: Airway is patent Respiratory effort is even, unlabored, Respiratory pattern is regular, symmetrical, Breath sounds are clear bilaterally. GI: Abdomen is flat, non-distended, Abd is soft and non tender. : No deficits noted. No signs and/or symptoms were reported regarding the genitourinary system. Derm: Skin is intact, is healthy with good turgor, Skin is dry, Skin is normal, Skin temperature is warm. Musculoskeletal: Circulation, motion, and sensation intact. Range of motion: intact in all extremities. Historical: - Allergies: 22:44 PENICILLINS; vc1 - PMHx: 22:44 Hyperlipidemia; Hypertension; vc1 - PSHx: 22:44 Total abdominal hysterectomy; vc1 - Immunization history:: Adult Immunizations up to date. - Infectious Disease History:: Denies. - Family history:: not pertinent. - Social history:: Smoking status: Patient denies any tobacco usage or history of. Screenin:45 [facility] ED Fall Risk Assessment (Adult) History of falling in the last 3 months, vc1 including since admission No falls in past 3 months (0 pts) Confusion or Disorientation No (0 pts) Intoxicated or Sedated No (0 pts) Impaired Gait No (0 pts) Mobility Assist Device Used No (0 pt) Altered Elimination No (0 pt) Score/Fall Risk Level 0 - 2 = Low Risk Oriented to surroundings, Maintained a safe environment, Assessed \T\ reinforced patient's understanding of fall precautions. Abuse screen: Denies threats or abuse. Nutritional screening: No deficits noted. Tuberculosis screening: No symptoms or risk factors identified. Vital Signs: 22:54 BP 146 / 62; Pulse 76; Resp 16; Temp 98.4; Pulse Ox 93% ; Weight 40.37 kg; Height 5 ft. vc1 0 in. ; Pain 0/10; 22:54 Body Mass Index 17.38 (40.37 kg, 152.40 cm) vc1 22:54 Pain Scale: Adult vc1 ED Course: 21:28 Patient arrived in ED. gm2 21:29 Moody Bassett MD is Attending Physician. rt 22:41 Arm band placed on right wrist. vc1 22:55 Triage completed. vc1 22:57 Patient has correct armband on for positive identification. seen and discharged from vc1 triage. Provided Education on: f/u with pcp. 22:57 No provider procedures requiring assistance completed. Patient did not have IV access vc1 during this emergency room visit. Administered Medications: No medications were administered Medication: 22:56 VIS not applicable for this client. vc1 Outcome: 22:30 Discharge ordered by . rt 22:57 Discharged to home ambulatory, with friend, vc1 22:57 Condition: good 22:57 Discharge instructions given to patient, Instructed on discharge instructions, follow up and referral plans. Demonstrated understanding of instructions, follow-up care, 22:58 Patient left the ED. vc1 Signatures: Rhea Beck RN RN vc1 Moody Bassett MD MD rt Renetta Gamble 2
[2024-03-17 23:59] VITALS: BP 146/62; TEMP 98.4; O2SAT 93
== END 2024-03-17 22:58 | disposition home or self-care (01) ==
LOC: ER 21:25
DX: I10 Essential (primary) hypertension (principal)
CPT/HCPCS: 99282